=== PATIENT | female | born 1995 | race Two or more races ===

== ENCOUNTER 2019-12-28 02:26 | Emergency (ER) | payer MEDICAID ==
[~2019-12-28] VITALS: Ht 160 cm; Wt 74.8 kg
--- NOTE | 2019-12-28 02:44 | NUR ---
Patient presents to ER with c/o of chest pain x 4 days. Patient states pain is in the middle of her chest, non radiating. Patient also states she has neck pain. Placed in bed 1A. EKG done, results given to Dr. Littlejohn. Patient in no acute distress. Awaiting MD berrios.
--- NOTE | 2019-12-28 02:50 | NUR ---
Dr. Littlejohn at bedside.
--- NOTE | 2019-12-28 03:41 | NUR ---
Patient discharged to home in stable conditon. Written and verbal after care instructions given. Patient verbalizes understanding of instructions. Patient left ER in care of her fiance in no acute distress.
[2019-12-28 03:42] VITALS: BP 110/68
== END 2019-12-28 03:42 | disposition home or self-care (01) ==
LOC: ER 02:40
DX: R07.89 Other chest pain (principal); J45.909 Unspecified asthma, uncomplicated; Z88.8 Allergy status to other drugs, medicaments and biological substances
CPT/HCPCS: 36415; 70030-TC; 93005; A4663

== ENCOUNTER 2020-09-01 17:08 | Emergency (ER) | payer MEDICAID ==
[~2020-09-01] VITALS: Ht 165.1 cm; Wt 63.5 kg
[2020-09-01 18:03] LABS: BASOPHILS % (AUTO) 0.5 % (0.0-2.0); EOSINOPHILS # (AUTO) 0.6 K/uL (0.0-0.7); EOSINOPHILS % (AUTO) 6.8 % (0.0-7.0); HEMATOCRIT 39.8 % (31.2-41.9); HEMOGLOBIN 13.5 g/dL (10.9-14.3); LYMPHOCYTES # (AUTO) 1.7 K/uL (20.0-40.0); LYMPHOCYTES % (AUTO) 19.6 % (20.5-51.5); MEAN CORPUSCULAR HEMOGLOBIN 29.8 uug (24.7-32.8); MEAN CORPUSCULAR HGB CONC 34 g/dL (32.3-35.6); MEAN CORPUSCULAR VOLUME 88.1 fL (75.5-95.3); MONOCYTES # (AUTO) 0.5 K/uL (2.0-10.0); MONOCYTES % (AUTO) 5.4 % (0.0-11.0); NEUTROPHILS # (AUTO) 5.9 K/uL (1.8-8.9); NEUTROPHILS % (AUTO) 67.7 % (38.5-71.5); PLATELET COUNT (AUTO) 275 K/uL (179-408); RED BLOOD CELL COUNT(AUTO) 4.52 MIL/uL (3.63-4.92); WHITE BLOOD COUNT (AUTO) 8.7 K/uL (3.8-11.8)
[2020-09-01 18:08] LABS: CARBON DIOXIDE 24 mmol/L (21-32); CHLORIDE 105 mmol/L (98-107); CREATININE 0.7 mg/dL (0.6-1.3); GLUCOSE 115 mg/dL (74-106); POTASSIUM 3.8 mmol/L (3.5-5.1); UREA NITROGEN, BLOOD 10 mg/dL (7-18)
--- NOTE | 2020-09-01 18:10 | NUR ---
chaperoned us being done.
[2020-09-01 18:50] VITALS: BP 129/88
== END 2020-09-01 19:03 | disposition home or self-care (01) ==
LOC: ER 17:09
DX: N93.9 Abnormal uterine and vaginal bleeding, unspecified (principal); J45.909 Unspecified asthma, uncomplicated
CPT/HCPCS: 36415; 76856; 85025; 85730; 86850; 86900; 86901; A4663